=== PATIENT | female | born 1985 | race Two or more races ===

== ENCOUNTER 2021-04-25 08:54 | Emergency (ER) | payer MEDICAID, OTHER ==
[~2021-04-25] VITALS: Ht 170.2 cm; Wt 86.2 kg
[2021-04-25 10:43] VITALS: BP 160/63
[2021-04-25] MEDS ORDERED: KETOROLAC TROMETH 60MG/2ML VIAL IM ONE (11:00)
== END 2021-04-25 11:14 | disposition home or self-care (01) ==
LOC: ER 08:54
DX: M24.812 Other specific joint derangements of left shoulder, not elsewhere classified (principal)
CPT/HCPCS: 96372; 99283; J1885